=== PATIENT | female | born 1995 | race American Indian/Alaskan Native ===

== ENCOUNTER 2021-12-12 12:53 | Emergency (ER) | payer OTHER ==
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
[2021-12-12 17:24] VITALS: BP 124/69
== END 2021-12-12 17:23 | disposition home or self-care (01) ==
LOC: ED 12:53
DX: S40.819A Abrasion of unspecified upper arm, initial encounter (principal); M54.50 Low back pain, unspecified; Z79.899 Other long term (current) drug therapy; V87.7XXA Person injured in collision between other specified motor vehicles (traffic), initial encounter; Y93.89 Activity, other specified; Y92.488 Other paved roadways as the place of occurrence of the external cause; Y99.8 Other external cause status
CPT/HCPCS: 99282